=== PATIENT | male | born 1985 | race Two or more races ===

== ENCOUNTER 2021-03-25 06:11 | Outpatient (CLI) | payer OTHER | END 2021-03-25 23:00 | disposition home or self-care (01) | LOC: EDBD 06:11 → LAB 06:11 | PROVIDERS: ATTEND Obstetrics & Gynecology | DX: Z20.828 Contact with and (suspected) exposure to other viral communicable diseases (principal); Z20.818 Contact with and (suspected) exposure to other bacterial communicable diseases ==